=== PATIENT | male | born 1985 | race Caucasian/White ===

== ENCOUNTER 2021-05-14 22:48 | Emergency (ER) | payer MEDICAID ==
[~2021-05-14] VITALS: Ht 182.9 cm; Wt 135.0 kg
[2021-05-14] MEDS ORDERED: KETOROLAC 30MG/ML VIAL IV STA (23:13)
[2021-05-14] MEDS ORDERED: SODIUM CHLORIDE 0.9% 1,000 ML IV ONE (23:15)
[2021-05-14 23:47] LABS: BASOPHILS % 0.8 % (0.0-2.0); EOSINOPHILS % 1.3 % (0.0-5.0); HEMATOCRIT. 38.6 % (42.0-52.0); HEMOGLOBIN. 12.8 g/dL (14.0-18.0); LYMPHOCYTES % 27.7 % (20.0-50.0); MEAN CORPUSCULAR VOLUME 87.6 fL (80.0-94.0); MEAN PLATELET VOLUME 8.6 fl (7.4-10.4); MONOCYTES % 14.1 % (2.0-8.0); NEUTROPHILS % 56.1 % (40.0-76.0); PLATELET 135 x1000/uL (130-400); RED BLOOD CELL COUNT 4.41 mill/uL (4.7-6.1); RED CELL DISTRIBUTION WIDTH 15.1 % (11.6-14.6)
[2021-05-14 23:52] LABS: CHLORIDE 95 mEq/L (98-107)
[2021-05-15 00:01] LABS: BETA HYDROXYBUTYRATE 0.2 mMol/L (0.0-0.3)
[2021-05-15] MEDS ORDERED: METH-653 MT (05:57)
[2021-05-15] MEDS ORDERED: IBUP-2029 MT (05:57)
[2021-05-15 06:26] VITALS: BP 133/83
== END 2021-05-15 06:45 | disposition home or self-care (01) ==
LOC: ER 22:48
DX: R07.89 Other chest pain (principal); E11.65 Type 2 diabetes mellitus with hyperglycemia; I10 Essential (primary) hypertension; J45.909 Unspecified asthma, uncomplicated; F17.210 Nicotine dependence, cigarettes, uncomplicated; Z71.6 Tobacco abuse counseling
CPT/HCPCS: 36415; 71045; 76705; 80053; 82010; 83880; 84484; 85025; 85379; 96361; 96374; 99285; 99406; J1885; J7030

== ENCOUNTER 2021-09-27 11:51 | Emergency (ER) | payer MEDICAID, OTHER ==
[~2021-09-27] VITALS: Ht 182.9 cm; Wt 114.0 kg
[~2021-09-27 11:51] MED LIST: IBUP-2029 MT; METH-653 MT
[2021-09-27 14:19] LABS: HEMATOCRIT. 37.9 % (42.0-52.0); HEMOGLOBIN. 12.6 g/dL (14.0-18.0); MEAN CORPUSCULAR HEMOGLOBIN 28.7 pg (28.0-32.0); MEAN CORPUSCULAR VOLUME 86.6 fL (80.0-94.0); PLATELET 152 x1000/uL (130-400); RED BLOOD CELL COUNT 4.37 mill/uL (4.7-6.1); RED CELL DISTRIBUTION WIDTH 15.2 % (11.6-14.6)
[2021-09-27 14:29] LABS: CHLORIDE 104 mEq/L (98-107)
[2021-09-27 14:51] LABS: PLATELET ESTIMATE NORMAL
[2021-09-27] MEDS ORDERED: IBUP-2028 MT (14:59)
[2021-09-27] MEDS ORDERED: IBUPROFEN 400MG TABLET PO ONE (15:00)
[2021-09-27 15:35] VITALS: BP 129/80
== END 2021-09-27 15:39 | disposition home or self-care (01) ==
LOC: ER 12:09
DX: G62.9 Polyneuropathy, unspecified (principal); E11.9 Type 2 diabetes mellitus without complications; Z88.0 Allergy status to penicillin
CPT/HCPCS: 36415; 71045; 80053; 83880; 85025; 93005; 93970; 99285

== ENCOUNTER 2024-04-27 09:28 | Emergency (ER) | payer MEDICAID, OTHER ==
[~2024-04-27] VITALS: Ht 182.9 cm; Wt 150.0 kg
[~2024-04-27 09:28] MED LIST changes: +IBUP-2028 MT
[2024-04-27 09:29] VITALS: O2SAT 100
[2024-04-27 09:54] LABS: BASOPHILS % 0.7 % (0.0-2.0); EOSINOPHILS % 0.4 % (0.0-5.0); HEMOGLOBIN. 14.3 g/dL (14.0-18.0); LYMPHOCYTES % 19.6 % (20.0-50.0); MEAN CORPUSCULAR HEMOGLOBIN 27.8 pg (28.0-32.0); MEAN CORPUSCULAR HGB CONC 33.2 g/dL (31.0-37.0); MEAN CORPUSCULAR VOLUME 83.8 fL (80.0-94.0); MEAN PLATELET VOLUME 8.3 fl (7.4-10.4); NEUTROPHILS % 70.3 % (40.0-76.0); PLATELET 240 x1000/uL (130-400); RED BLOOD CELL COUNT 5.13 mill/uL (4.7-6.1); RED CELL DISTRIBUTION WIDTH 15.9 % (11.6-14.6)
[2024-04-27 10:05] LABS: CHLORIDE 96 mEq/L (98-107); POTASSIUM 3.9 mEq/L (3.5-5.1); SODIUM 131 mEq/L (136-145)
[2024-04-27 10:06] LABS: CARBON DIOXIDE 23 mEq/L (21-32)
[2024-04-27 10:07] LABS: CALCIUM 9.4 mg/dL (8.7-10.4)
[2024-04-27 10:10] LABS: BG BASE EXCESS -0.6 mmol/L (-2.0-2.0); BG CARBOXYHEMOGLOBIN 0.3 % (0.5-1.5); BG DEOXYHEMOGLOBIN 2.9 % (0.0-5.0); BG HCO3 ACT 23.1 mmol/L (22.0-26.0); BG OXYGEN SATURATION 97.1 % (92.0-98.5); BG OXYHEMOGLOBIN 96.8 % (94.0-97.0); BG PCO2 35.5 mmHg (35.0-45.0); BG PH 7.432 (7.350-7.450); BG PO2 89.8 mmHg (75.0-100.0); BG SAMPLE SITE RIGHT RADIAL; BG TOTAL HEMOGLOBIN 15.2 g/dL (12.0-18.0); BG VENT MODE ROOM AIR
[2024-04-27 10:11] LABS: GLUCOSE 93 mg/dL (70-105); UREA NITROGEN BLOOD 11 mg/dL (9-23)
[2024-04-27 10:14] LABS: BETA HYDROXYBUTYRATE 1.8 mMol/L (0.0-0.3)
[2024-04-27 10:32] LABS: TROPONIN I HIGH SENSITIVITY < 4 ng/L (3.0-53)
[2024-04-27] MEDS: SODIUM CHLORIDE 0.9% 1,000 ML IV ONE (10:33)
[2024-04-27] MEDS: KETOROLAC 30MG/ML VIAL IV NR (13:53)
[2024-04-27] MEDS: ONDANSETRON HCL 4MG/2ML INJ IV NR (13:53)
[2024-04-27 16:49] VITALS: BP 118/73; PULSE 77; RESP 20; TEMP 98.1
== END 2024-04-27 17:03 | disposition short-term general hospital (02) ==
LOC: ER 09:28 → EDBEDREQ 11:06 → CANBEDREQ 14:33 → ER 17:03
DX: E11.9 Type 2 diabetes mellitus without complications (principal); I10 Essential (primary) hypertension; Z88.0 Allergy status to penicillin; J45.909 Unspecified asthma, uncomplicated; R07.89 Other chest pain
CPT/HCPCS: 80048; 82010; 83880; 85025; 84484; 36415; 71045; 82805; 82375; 93005; 96374; 96375; 99285; 36600; J1885; J2405; J7030; Z7610 ×3